=== PATIENT | male | born 1975 | race Caucasian/White ===

== ENCOUNTER 2022-05-01 16:46 | Emergency (ER) | payer OTHER ==
[~2022-05-01] VITALS: Ht 180.3 cm; Wt 120.5 kg
[~2022-05-01 16:46] MED LIST: AMBIEN10 MG PO; ATIVAN 1MG T1 MG/TAB PO; BENTYL 20MG20 MG/TAB PO; BUSPAR DIVIDOSE15 MG PO; CITALOPRAM20 MG PO; CYMBALTA 60MG60 MG PO; DESYREL 50MG50 MG PO; EFFEXOR-XR150 MG PO; FISH OIL 1000MG1 CAP PO; FLEXERIL 1010 MG/TAB PO; FORTESTA10 MG/0.5 TP; GLUCOSAMINE & C1 CA1 PO; GLUCOSAMINE & C1 TA1 PO; GUAIFENESIN W PO; HCTZ 25MG TAB25 MG PO; IMITREX ST6 MG/0.5 M SC; IMITREX50 MG PO; IMODIUM 2MG CAPS2 MG PO; KLONOPIN0.5 MG PO; LORTAB 5/500 501 TAB PO; LORTAB 7.5/5001 TAB PO; LYRICA 100MG C100 M1 PO; LYRICA 75MG CAP75 MG PO; MELAT3MGTAB PO; MINIPRESS2 MG PO; NEURONTIN400 MG PO; NEXIUM 40MG40 MG PO; NEXIUM I.V. 40M40 MG PO; NORCO 325 MG-51 TAB PO; OMEGA-31000 MG PO; PERCOCET 325 MG1 TA2 PO; PRILOSEC 20MG20 MG PO; PRINIVIL10 MG PO; PRINIVIL40 MG PO; PrevPak PO; REMERON30 MG PO; RISPERDAL2 MG PO; SYMBICORT1 AE2 IH; TESSALON P100 MG/CAP PO; VENTOLIN0.09 MG IH; VIAGRA100 M1 PO; ZOLPIDEM10 MG PO
[2022-05-01 16:59] VITALS: TEMP 98.4
[2022-05-01] MEDS ORDERED: PERCOCET 325 MG1 TA2 PO (17:16)
[2022-05-01] MEDS ORDERED: SILVADEN TOP (17:33)
[2022-05-01 20:07] VITALS: BP 122/77; PULSE 98
== END 2022-05-01 20:00 | disposition home or self-care (01) ==
LOC: COL.ER 16:46
DX: T23.242A Burn of second degree of multiple left fingers (nail), including thumb, initial encounter (principal); T31.0 Burns involving less than 10% of body surface; Z88.6 Allergy status to analgesic agent; X16.XXXA Contact with hot heating appliances, radiators and pipes, initial encounter
CPT/HCPCS: J1170; J1885; J2270

== ENCOUNTER 2024-07-28 07:46 | Day surgery (SDC) | payer OTHER ==
--- NOTE | 2024-07-27 13:50 | NUR ---
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 SW called pt and discussed this. He inquired about who would be his NOK, which pt confirmed his , Anabel Ruelas. SW informed him that his would be legal NOK. He was agreeable to this and reports he is retired and wanted to ensure it would remain he same as prior affairs. He expressed no further needs.
[~2024-07-28] VITALS: Ht 177.8 cm; Wt 120.4 kg
[~2024-07-28 07:46] MED LIST changes: +LR 1,000 ML IV SCH; +PROTONIX 40MG T40 MG PO; +SILVADEN TOP; +ZOFRAN ODT4 MG PO
[2024-07-28] MEDS ORDERED: Influenza Virus Vaccine, Trivalent '24-25 0.5 ML SYRINGE IM SCH (09:00)
[2024-07-28] MEDS ORDERED: Lidocaine PF 2% (20 MG/ML) 5 ML VIAL ONE (09:03)
[2024-07-28] MEDS ORDERED: Ondansetron 4 MG/2 ML VIAL IV PRN (09:30)
[2024-07-28 09:50] VITALS: BP 122/82; PULSE 74; TEMP 97.6
--- NOTE | 2024-07-28 09:50 | NUR ---
PATIENT AMBULATED TO CHAIR WITH STEADY GAIT, ASSIST OF 2. ALERT AND AWAKE. DENIES PAIN, NAUSEA AND SHORTNESS OF BREATH. BREATHING REGULAR AND UNLABORED ON ROOM AIR. SKIN WARM AND DRY. IV IN PLACE. NURSE HANDOFF COMPLETED IN ROOM. SEE CHART FOR VITAL SIGNS. PATIENT HAD GRAPE JUICE AND A MUFFIN. BOTH FOOD AND DRINK TOLERATED WELL, NO DYSPHAGIA. CALL LIGHT IN REACH. SPOUSE PRESENT IN ROOM.
[2024-07-28 10:00] VITALS: BP 116/77; PULSE 71
[2024-07-28 10:14] VITALS: BP 126/79; PULSE 92; TEMP 97.6
[2024-07-28 10:15] VITALS: BP 126/86; PULSE 69
--- NOTE | 2024-07-28 10:30 | NUR ---
1010: MET WITH PATIENT AND SPOUSE IN ROOM TO DISCUSS PROCEDURE. 1027: DISCHARGE TEACHING COMPLETED WITH PRINTED EDUCATION AND INSTRUCTIONS SENT HOME WITH PATIENT. PATIENT VERBALIZED UNDERSTANDING OF TEACHING. 1028: IV REMOVED. GAUZE AND COBAN PLACED OVER SITE. 1030: PATIENT DISCHARGED HOME WITH [facility].
== END 2024-07-28 10:30 | disposition home or self-care (01) ==
LOC: SDCO 07:46
DX: K57.31 Diverticulosis of large intestine without perforation or abscess with bleeding (principal); K64.1 Second degree hemorrhoids; K21.01 Gastro-esophageal reflux disease with esophagitis, with bleeding; I10 Essential (primary) hypertension; E66.9 Obesity, unspecified; Z87.11 Personal history of peptic ulcer disease; S38 Crushing injury and traumatic amputation of abdomen, lower back, pelvis and external genitals; Z87.891 Personal history of nicotine dependence
CPT/HCPCS: J2704; J7120